=== PATIENT | female | born 1980 | race Hispanic/Latino ===

== ENCOUNTER 2024-07-07 08:35 | Emergency (ER) | payer BC | END 2024-07-07 10:15 | disposition home or self-care (01) | LOC: BURERS 08:35 | DX: M54.41 Lumbago with sciatica, right side (principal); M25.551 Pain in right hip; M25.561 Pain in right knee; M79.671 Pain in right foot; R20.0 Anesthesia of skin; I10 Essential (primary) hypertension; E11.9 Type 2 diabetes mellitus without complications; I25.10 Atherosclerotic heart disease of native coronary artery without angina pectoris; M79.7 Fibromyalgia; M19.90 Unspecified osteoarthritis, unspecified site; G47.33 Obstructive sleep apnea (adult) (pediatric); Z79.51 Long term (current) use of inhaled steroids; Z79.899 Other long term (current) drug therapy | CPT/HCPCS: 99284 ==